=== PATIENT | female | born 1980 | race Caucasian/White ===

== ENCOUNTER 2017-02-15 18:28 | Observation (INO) ==
[2017-02-15] MEDS ORDERED: 0.9 % Sodium Chloride 1,000 ML IVC ONE ×2 (19:08→19:17)
[2017-02-15] MEDS ORDERED: *HR* HYDROmorphone (PF) 1 MG/ML SYRINGE IVP ONE (19:15)
[2017-02-15] MEDS ORDERED: Ondansetron 4 MG/2 ML VIAL IVP PRN ×3 (19:18→21:11)
[2017-02-15 19:20] LABS: Bilirubin,Urine Negative (Negative); Blood,Urine Negative (Negative); Clarity,Urine Clear (Clear); Color,Urine Yellow (Yellow); Glucose,Urine (UA) Normal (Normal); Ketones,Urine Negative (Negative); Leukocyte Esterase,Urine Negative (Negative); Nitrite,Urine Negative (Negative); PH,Urine 6.5 pH Units (5.0-8.0); Protein,Urine Negative (Neg-Trace); Specific Gravity,Urine 1.028 (1.010-1.025); Urobilinogen,Urine Normal (Normal)
[2017-02-15 19:37] LABS: Basophils % 0.3 %; Eosinophils % 0.4 %; Hematocrit 42.8 % (35.3-44.9); Hemoglobin 14.8 g/dL (11.5-15.4); Immature Granulocytes % 0.3 % (0-4); Lymphocytes % 19.1 %; Mean Corpuscular HGB Conc 34.6 g/dL (31.6-35.5); Mean Corpuscular Hemoglobin 30.8 pg (28.0-33.3); Mean Platelet Volume 8.7 fL (9.4-12.4); Monocytes # 0.6 K/mcL (0.0-1.3); Monocytes % 5.5 %; Neutrophils # 7.8 K/mcL (1.6-8.9); Nucleated Red Blood Cells 0.2 /100 WBC (0); Platelet Count 232 K/mcL (140-400); Red Blood Count 4.81 M/mcL (3.82-4.97); Red Cell Distribution Width 11.7 % (11.5-14.5); Segmented Neutrophils % 74.4 %
[2017-02-15 19:40] LABS: Prothrombin Time 11.2 Seconds (9.4-12.1)
--- NOTE | 2017-02-15 19:46 | Emergency Department Note ---
START Narrative - START START: 36-year-old female presents to emergency room with acute onset of right lower quadrant abdominal pain that started approximate in this afternoon. 7 hours later patient decided to come to the emergency room because the symptoms were progressively getting worse. Denies any fevers or chills. She has had intermittent abdominal discomfort and anorexia since he onset of the symptoms. Denies any trauma or injury. She is currently 5 months and breast- feeding. She has not demonstrated since the delivery at this time. She denies any loss and no production at this time. She has not changed any by mouth intake or food intake at this point. Vital signs on presentation are stable except for intermittent tachycardia. Patient will have fluid hydration provided here as well as pain medication and nausea medication. Clinically there is little concern for ovarian cyst or torsion along with possible tubo- ovarian abscess or ectopic secondary to the patient's lack of menstruation last 5 months and no acute changes at this time. Physical exam is unremarkable except for right lower quadrant abdominal pain. Pain is not noted over the bilateral adnexa. She has no CVA tenderness noted on exam at this time. Patient will have urinalysis CBC chemistry and then CT imaging of the abdomen with IV contrast. Definitive evaluation treatment course to be completed. See detailed documentation of physical exam, medical intervention, medical decision-making and disposition and the resident physician's note. 2100 Patient found to have acute early appendicitis based on CT imaging of the abdomen surgical admission to be completed at this time for IV antibiotics and then definitive management. Consultation placed out to Dr. waters. No other concerns or issues noted. Admission pulses to be completed at this time.
[2017-02-15 19:54] LABS: Albumin 4.5 g/dL (3.5-5.0); Albumin/Globulin Ratio 1.1 (1.1-2.2); BUN/Creatinine Ratio 13 (6-26); Bilirubin,Direct 0.2 mg/dL (0.0-0.5); Bilirubin,Indirect 0.3 mg/dL (0.0-1.2); Bilirubin,Total 0.5 mg/dL (0.2-1.2); Blood Urea Nitrogen 13 mg/dL (7-20); Carbon Dioxide 26 mEq/L (19-29); Chloride 104 mEq/L (98-109); Globulin 4.2 g/dL (2.4-3.5); Glucose 91 mg/dL (70-99); Lipase 41 Units/L (8-78); Osmolality,Calculated 294 (280-300); Potassium 3.7 mEq/L (3.5-4.5); Sodium 142 mEq/L (136-145); Total Protein 8.7 g/dL (6.0-8.3); eGFR For African Americans > 60 (> 60); eGFR For Non-African Americans > 60 (> 60)
--- NOTE | 2017-02-15 20:44 | Emergency Department Note ---
Disposition Clinical Impression: Right lower quadrant abdominal pain, Nausea Appendicitis Qualifiers: Appendicitis type: acute appendicitis Acute appendicitis type: with localized peritonitis Qualified Code(s): K35.3 - Acute appendicitis with localized peritonitis Disposition: Admitted As Inpatient Condition: Fair Time of Disposition: 21:59 Abdominal Pain HPI - General Chief Complaint: ED Abdominal Pain Stated Complaint: RLQ Pain Time Seen by Provider: 02/15/17 18:51 Source: patient Nursing Notes Reviewed: Yes Vital Signs Reviewed: Yes - History of Present Illness HPI Narrative: Patient's 36-year-old female complains of abdominal pain and right lower quadrant that started at noon today. Patient states 3 hours later the pain went from crampy abdominal pain with minimal irritation of 1/10-9/10 sharp abdominal pain worse with movement any movement. Patient states she has never had any abdominal surgeries. Patient is a breast-feeding mother gave 5 months ago. Patient denies tobacco use, illicit drug use, alcohol use. Pain Scale: 8 - Related Data Home Medications Medication Instructions Recorded Confirmed No Known Home Drugs 02/15/17 02/15/17 Allergies Allergy/AdvReac Type Severity Reaction Status Date / Time Sulfa (Sulfonamide Allergy Rash Verified 02/15/17 18:48 Antibiotics) All systems ED: reviewed and negative except as stated. Review of Systems: As Per HPI Constitutional: Denies: fever, chills ENT ED: Denies: congestion Cardiovascular: Denies: chest pain, palpitations Respiratory: Denies: cough, dyspnea Gastrointestinal: Reports: abdominal pain, nausea, diarrhea Genitourinary: Denies: urgency, dysuria, frequency, hematuria Musculoskeletal: Denies: back pain Integumentary: Denies: rash Neurological: Denies: headache Psychiatric: Denies: anxiety Endocrine: Denies: fatigue Abdominal Pain PMH - Past Medical History Medical history: Reports: no medical history Female Surgical History: Reports: orthopedic, other, Tonsillectomy Psychiatric history: Reports: no psych history - Social History Smoking status: Never smoker Alcohol use: Reports: occasionally Drug use: Reports: none Physical Exam Vital Signs Temperature 97.6 F 02/15/17 18:47 Pulse Rate 87 02/15/17 18:47 Respiratory Rate 16 02/15/17 18:47 Blood Pressure 115/80 02/15/17 18:47 O2 Sat by Pulse Oximetry 98 02/15/17 18:47 Temperature 97.6 F 02/15/17 18:47 Pulse Rate 87 02/15/17 18:47 Respiratory Rate 16 02/15/17 18:47 Blood Pressure 115/80 02/15/17 18:47 O2 Sat by Pulse Oximetry 98 02/15/17 18:47 Oxygen Delivery Oxygen Delivery Room Air 36-year-old female who is alert and oriented 3 and in acute distress secondary to abdominal discomfort. Patient looks like she is bracing herself for impact. Patient looks heavily guarded against movement. Patient is nontoxic appearing has normal vital signs and afebrile. - General Limitations: no limitations General appearance: alert, in no apparent distress - Head Head exam: atraumatic, normocephalic, normal inspection - Eye Eye exam: Present: normal appearance, PERRL, EOMI - ENT ENT exam: normal exam, normal oropharynx, mucous membranes dry - Neck Neck exam: Present: normal inspection, full ROM, trachea midline - Chest Chest inspection: Present: normal inspection, symmetric chest wall rise - Respiratory Respiratory exam: Present: normal lung sounds bilaterally - Cardiovascular Cardiovascular exam: Present: regular rate, normal rhythm, normal heart sounds - Abdominal Exam Abdominal exam: Present: soft, tenderness, guarding, diminished bowel sounds, tenderness at McBurney's Point. Absent: distention, rebound, rigidity, Kim' s sign, Rovsing's sign Abdominal tenderness: Present: RLQ, suprapubic - Extremities Exam Extremities exam: Present: normal inspection, full ROM. Absent: tenderness, pedal edema - Back Exam Back exam: Present: normal inspection, full ROM. Absent: tenderness, CVA tenderness (R), CVA tenderness (L) - Neurological Exam Neurological exam: Present: alert, oriented X3 - Psychiatric Psychiatric exam: Present: normal affect, normal mood - Skin Skin exam: Present: warm, dry, intact, normal color. Absent: diaphoresis, erythema, pallor Course Vital Signs Temperature 97.6 F 02/15/17 18:47 Pulse Rate 87 02/15/17 18:47 Respiratory Rate 16 02/15/17 18:47 Blood Pressure 115/80 02/15/17 18:47 O2 Sat by Pulse Oximetry 98 02/15/17 18:47 Temperature 98.1 F 02/15/17 21:41 Pulse Rate 73 02/15/17 21:41 Respiratory Rate 17 02/15/17 21:41 Blood Pressure 107/59 02/15/17 21:41 O2 Sat by Pulse Oximetry 100 02/15/17 21:41 Oxygen Delivery Oxygen Delivery Room Air Abdominal Pain - MDM Narrative Medical decision making narrative: Patient abdominal pain or right lower quadrant concerning for appendicitis. Patient's pain is acute onset. Patient is breast-feeding and has been anovulatory since and has not had any periods. Considered ovarian torsion but since patient may be anovulatory appendicitis seems more likely at this time. Patient's test is negative and so patient was sent for CT abdomen and pelvis which shows signs early appendicitis and possibly ileus enteritis. Patient's labs were showed no elevation of her WBC no lab abnormalities for LDH , LFTs, lipase. Patient's pain is controlled with 1 mg of Dilaudid and IV Zofran. Dr. Jerez of Gen. surgery has accepted patient to his service for overnight observation and antibiotic treatment. He states he will make all the necessary orders to the patient's care from this point forward. - Lab Data Lab results reviewed: Yes I reviewed the patient's lab results. Lab results narrative: Short CBC 02/15/17 Range/Units 19:30 WBC 10.4 (4.3-11.1) K/mcL Hgb 14.8 (11.5-15.4) g/dL Hct 42.8 (35.3-44.9) % Plt Count 232 (140-400) K/mcL Neutrophils # 7.8 (1.6-8.9) K/mcL BMP 02/15/17 Range/Units 19:30 Sodium 142 (136-145) mEq/L Potassium 3.7 (3.5-4.5) mEq/L Chloride 104 (98-109) mEq/L Carbon Dioxide 26 (19-29) mEq/L BUN 13 (7-20) mg/dL Creatinine 0.97 (0.57-1.11) mg/dL Glucose 91 (70-99) mg/dL Calcium 10.0 (8.6-10.8) mg/dL Liver Function 02/15/17 Range/Units 19:30 Total Bilirubin 0.5 (0.2-1.2) mg/dL Direct Bilirubin 0.2 (0.0-0.5) mg/dL AST 16 (5-34) Units/L ALT 19 (0-55) Units/L Alkaline Phosphatase 142 H (38-126) Units/L Albumin 4.5 (3.5-5.0) g/dL Urine 02/15/17 Range/Units 19:13 Urine Color Yellow (Yellow) Urine Clarity Clear (Clear) Urine pH 6.5 (5.0-8.0) pH Units Ur Specific [place] 1.028 H (1.010-1.025) Urine Protein Negative (Neg-Trace) mg/dL Urine Glucose (UA) Normal (Normal) mg/dL Result diagrams: 02/15/17 19:30 02/15/17 19:30 Lab Results 02/15/17 02/15/17 02/15/17 Range/Units 19:13 19:13 19:30 WBC 10.4 (4.3-11.1) K/mcL RBC 4.81 (3.82-4.97) M/mcL Hgb 14.8 (11.5-15.4) g/dL Hct 42.8 (35.3-44.9) % MCV 89.0 (83.0-100.0) fL MCH 30.8 (28.0-33.3) pg MCHC 34.6 (31.6-35.5) g/dL RDW 11.7 (11.5-14.5) % Plt Count 232 (140-400) K/mcL MPV 8.7 L (9.4-12.4) fL Immature Gran % 0.3 (0-4) % Seg Neutrophils % 74.4 % Lymphocytes % 19.1 % Monocytes % 5.5 % Eosinophils % 0.4 % Basophils % 0.3 % Neutrophils # 7.8 (1.6-8.9) K/mcL Lymphocytes # 2.0 (0.6-4.6) K/mcL Monocytes # 0.6 (0.0-1.3) K/mcL Eosinophils # 0.0 (0.0-0.6) K/mcL Basophils # 0.0 (0.0-0.2) K/mcL Nucleated RBCs/100 WBC 0.2 H (0) /100 WBC PT (9.4-12.1) Seconds INR Sodium (136-145) mEq/L Potassium (3.5-4.5) mEq/L Chloride (98-109) mEq/L Carbon Dioxide (19-29) mEq/L BUN (7-20) mg/dL Creatinine (0.57-1.11) mg/dL Est GFR ( Amer) (> 60) Est GFR (Non-Af Amer) (> 60) BUN/Creatinine Ratio (6-26) Glucose (70-99) mg/dL Calculated Osmolality (280-300) Calcium (8.6-10.8) mg/dL Total Bilirubin (0.2-1.2) mg/dL Direct Bilirubin (0.0-0.5) mg/dL Indirect Bilirubin (0.0-1.2) mg/dL AST (5-34) Units/L ALT (0-55) Units/L Alkaline Phosphatase (38-126) Units/L Serum Total Protein (6.0-8.3) g/dL Albumin (3.5-5.0) g/dL Globulin (2.4-3.5) g/dL Albumin/Globulin Ratio (1.1-2.2) Lipase (8-78) Units/L Urine Color Yellow (Yellow) Urine Clarity Clear (Clear) Urine pH 6.5 (5.0-8.0) pH Units Ur Specific [place] 1.028 H (1.010-1.025) Urine Protein Negative (Neg-Trace) mg/dL Urine Glucose (UA) Normal (Normal) mg/dL Urine Ketones Negative (Negative) mg/dL Urine Blood Negative (Negative) Urine Nitrite Negative (Negative) Urine Bilirubin Negative (Negative) Urine Urobilinogen Normal (Normal) mg/dL Ur Leukocyte Esterase Negative (Negative) Ur Culture Indicated? NO (NO) Urine Test Negative (Negative) 02/15/17 02/15/17 02/15/17 Range/Units 19:30 19:30 19:30 WBC (4.3-11.1) K/mcL RBC (3.82-4.97) M/mcL Hgb (11.5-15.4) g/dL Hct (35.3-44.9) % MCV (83.0-100.0) fL MCH (28.0-33.3) pg MCHC (31.6-35.5) g/dL RDW (11.5-14.5) % Plt Count (140-400) K/mcL MPV (9.4-12.4) fL Immature Gran % (0-4) % Seg Neutrophils % % Lymphocytes % % Monocytes % % Eosinophils % % Basophils % % Neutrophils # (1.6-8.9) K/mcL Lymphocytes # (0.6-4.6) K/mcL Monocytes # (0.0-1.3) K/mcL Eosinophils # (0.0-0.6) K/mcL Basophils # (0.0-0.2) K/mcL Nucleated RBCs/100 WBC (0) /100 WBC PT 11.2 (9.4-12.1) Seconds INR 1.0 Sodium 142 (136-145) mEq/L Potassium 3.7 (3.5-4.5) mEq/L Chloride 104 (98-109) mEq/L Carbon Dioxide 26 (19-29) mEq/L BUN 13 (7-20) mg/dL Creatinine 0.97 (0.57-1.11) mg/dL Est GFR ( Amer) > 60 (> 60) Est GFR (Non-Af Amer) > 60 (> 60) BUN/Creatinine Ratio 13 (6-26) Glucose 91 (70-99) mg/dL Calculated Osmolality 294 (280-300) Calcium 10.0 (8.6-10.8) mg/dL Total Bilirubin 0.5 (0.2-1.2) mg/dL Direct Bilirubin 0.2 (0.0-0.5) mg/dL Indirect Bilirubin 0.3 (0.0-1.2) mg/dL AST 16 (5-34) Units/L ALT 19 (0-55) Units/L Alkaline Phosphatase 142 H (38-126) Units/L Serum Total Protein 8.7 H (6.0-8.3) g/dL Albumin 4.5 (3.5-5.0) g/dL Globulin 4.2 H (2.4-3.5) g/dL Albumin/Globulin Ratio 1.1 (1.1-2.2) Lipase 41 (8-78) Units/L Urine Color (Yellow) Urine Clarity (Clear) Urine pH (5.0-8.0) pH Units Ur Specific [place] (1.010-1.025) Urine Protein (Neg-Trace) mg/dL Urine Glucose (UA) (Normal) mg/dL Urine Ketones (Negative) mg/dL Urine Blood (Negative) Urine Nitrite (Negative) Urine Bilirubin (Negative) Urine Urobilinogen (Normal) mg/dL Ur Leukocyte Esterase (Negative) Ur Culture Indicated? (NO) Urine Test (Negative) - Radiology Data Radiology results reviewed: Yes I reviewed the patient's radiology results. Abdomen/Pelvis CT 02/15/17 19:23 IMPRESSION: Increased mucosal enhancement of the appendix which shows mild distal dilation and minimal adjacent inflammatory changes. Findings could be related to early uncomplicated acute appendicitis in the correct clinical setting. There is also mild fluid distention of the small bowel loop in the anterior abdomen, possibly ileus or enteritis. D/ / Jaimee Ibarra Cha, MD / Jaimee Ibarra Cha, MD Interpreting Provider: Jaimee Ibarra Cha, MD Attestation Statement - Attestation Attestation: I, Brandon Quintana DO, examined this patient [id number] and my medical decision-making was reviewed with Dr. Wesley Avila, Resident Physician. I agree with the documented findings, disposition and treatment plan as described except to the extent set forth below. Please see my progress notes for details.
[2017-02-15] MEDS: 0.9 % Sodium Chloride 1,000 ML IVC SCH (22:22)
[2017-02-16] MEDS: Piperacillin/Tazobactam 3.375 GM/200 ML BAG IVPB SCH ×4 (00:13→19:25)
[2017-02-16] MEDS: *HR* HYDROmorphone (PF) 1 MG/ML SYRINGE IVP PRN ×4 (00:15→16:40)
[2017-02-16] MEDS: 0.9 % Sodium Chloride 1,000 ML IVC SCH ×3 (05:32→19:00)
[2017-02-16 06:42] LABS: Basophils % 0.3 %; Eosinophils % 0.5 %; Hematocrit 33.3 % (35.3-44.9); Hemoglobin 11.3 g/dL (11.5-15.4); Immature Granulocytes % 0.2 % (0-4); Lymphocytes # 2.2 K/mcL (0.6-4.6); Lymphocytes % 37.2 %; Mean Corpuscular HGB Conc 33.9 g/dL (31.6-35.5); Mean Corpuscular Hemoglobin 30.6 pg (28.0-33.3); Mean Corpuscular Volume 90.2 fL (83.0-100.0); Mean Platelet Volume 9.1 fL (9.4-12.4); Monocytes # 0.4 K/mcL (0.0-1.3); Monocytes % 6.6 %; Neutrophils # 3.3 K/mcL (1.6-8.9); Platelet Count 162 K/mcL (140-400); Red Blood Count 3.69 M/mcL (3.82-4.97); Red Cell Distribution Width 11.9 % (11.5-14.5); Segmented Neutrophils % 55.2 %
[2017-02-16 08:21] LABS: Alanine Aminotransferase 15 Units/L (0-55); Albumin 3.3 g/dL (3.5-5.0); Albumin/Globulin Ratio 1.1 (1.1-2.2); Alkaline Phosphatase 92 Units/L (38-126); Aspartate Amino Transferase 13 Units/L (5-34); BUN/Creatinine Ratio 11 (6-26); Blood Urea Nitrogen 9 mg/dL (7-20); Calcium 8.4 mg/dL (8.6-10.8); Carbon Dioxide 20 mEq/L (19-29); Chloride 109 mEq/L (98-109); Glucose 90 mg/dL (70-99); Osmolality,Calculated 286 (280-300); Sodium 139 mEq/L (136-145); Total Protein 6.3 g/dL (6.0-8.3); eGFR For African Americans > 60 (> 60); eGFR For Non-African Americans > 60 (> 60)
--- NOTE | 2017-02-16 08:32 | General Surg History&Physical ---
Date of Encounter: 02/16/17 Time of Encounter: 08:00 Assessment and Plan (1) Appendicitis Current Visit: Yes Status: Acute The assessment and plan as outlined above was discussed with the patient and/or family members who expressed understanding and agreement. All questions were answered. The patient has CAT scan evidence of dilated appendix. 2 quite blood cell count measurements are normal. Her history and physical examination are suggestive of appendicitis. I discussed the risks and benefits of both antibiotic therapy and laparoscopic appendectomy with the patient. She has chosen laparoscopic appendectomy. We will proceed later today. Qualifiers: Appendicitis type: acute appendicitis Acute appendicitis type: with localized peritonitis Qualified Code(s): K35.3 - Acute appendicitis with localized peritonitis History of Present Illness Chief complaint: Right lower quadrant abdominal pain HPI: Ms. Barnes is a 36 year old female Who is 5 months . She is currently nursing. She developed crampy suprapubic a midline abdominal pain yesterday that progressed to right lower quadrant pain. She does have anorexia. She has pain with motion. She sought evaluation in the emergency room. Her white blood cell count was normal. CAT scan findings demonstrated a dilated appendix with very little periappendiceal inflammation. There was no evidence of perforation. Since the white blood cell count was normal she was admitted to the hospital for IV hydration and repeat examination in 12 hours. Since admission to the hospital she is taking 2 doses of pain medicine. She rated her pain at 7 out of 10 this morning. She continues to have pain with motion. Physical examination demonstrated involuntary guarding right lower quadrant. I personally reviewed her CAT scan films. The appendix is in the retrocecal position and slightly dilated. There is very little periappendiceal inflammation. I discussed the findings of normal white blood cell count on 2 measurements as well as equivocal CAT scan findings with the patient. Her history and physical examination support appendicitis. She has decided to proceed with laparoscopic appendectomy. Past Med Surg Social Fam HX - Past Medical History Medical history: no medical history Psychiatric history: no psych history - Social History Smoking Status: Never smoker Smokeless Tobacco Status: No Alcohol use: occasionally Drug use: none Medications and Allergies No Known Home Drugs 02/15/17 [History] 3 Allergy/AdvReac Type Severity Reaction Status Date / Time Sulfa (Sulfonamide Allergy Rash Verified 02/15/17 18:48 Antibiotics) Review of Systems All systems PM: A 10-system review of systems was performed and is negative for pertinent findings except as documented above in the HPI. General Surgery Exam Initial Vital Signs Temp Pulse Resp BP Pulse Ox 97.6 F 87 16 115/80 98 02/15/17 18:47 02/15/17 18:47 02/15/17 18:47 02/15/17 18:47 02/15/17 18:47 - General physical appearance well developed, well nourished, no distress - Neck no masses, no bruits, trachea midline, no lymphadectomy, no venous distension - Respiratory normal expansion, normal respiratory effort, clear to percussion, clear to auscultation - Cardiovascular Cardiovascular exam: Present: RRR, no murmurs/rubs/gallops - Abdomen Abdomen general surgery: Present: bowel sounds present, guarding Abdominal Tenderness: Present: RLQ - Neurologic Present: CN 2-12 grossly intact, normal coordination, normal sensation - Psychiatric Psychiatric general surgery: Present: appropriate, oriented to person, oriented to place, oriented to time, speech is normal, memory intact Results - Labs 02/16/17 05:48 02/16/17 07:57 Abnormal lab results RBC 3.69 M/mcL (3.82-4.97) L 02/16/17 05:48 Hgb 11.3 g/dL (11.5-15.4) L D 02/16/17 05:48 Hct 33.3 % (35.3-44.9) L 02/16/17 05:48 MPV 9.1 fL (9.4-12.4) L 02/16/17 05:48 Nucleated RBCs/100 WBC 0.2 /100 WBC (0) H 02/15/17 19:30 POC Glucose 97 (58-89) H 02/16/17 05:17 Calcium 8.4 mg/dL (8.6-10.8) L D 02/16/17 07:57 Albumin 3.3 g/dL (3.5-5.0) L D 02/16/17 07:57 Ur Specific [place] 1.028 (1.010-1.025) H 02/15/17 19:13 Diabetes panel 02/16/17 Range/Units 07:57 Sodium 139 (136-145) mEq/L Potassium 4.0 (3.5-4.5) mEq/L Chloride 109 (98-109) mEq/L Carbon Dioxide 20 (19-29) mEq/L BUN 9 (7-20) mg/dL Creatinine 0.85 (0.57-1.11) mg/dL Glucose 90 (70-99) mg/dL Calcium 8.4 L D (8.6-10.8) mg/dL AST 13 (5-34) Units/L ALT 15 (0-55) Units/L Alkaline Phosphatase 92 (38-126) Units/L Albumin 3.3 L D (3.5-5.0) g/dL Calcium panel 02/16/17 Range/Units 07:57 Calcium 8.4 L D (8.6-10.8) mg/dL Albumin 3.3 L D (3.5-5.0) g/dL Pituitary panel 02/16/17 Range/Units 07:57 Sodium 139 (136-145) mEq/L Potassium 4.0 (3.5-4.5) mEq/L Chloride 109 (98-109) mEq/L Carbon Dioxide 20 (19-29) mEq/L BUN 9 (7-20) mg/dL Creatinine 0.85 (0.57-1.11) mg/dL Glucose 90 (70-99) mg/dL Calcium 8.4 L D (8.6-10.8) mg/dL Adrenal panel 02/16/17 Range/Units 07:57 Sodium 139 (136-145) mEq/L Potassium 4.0 (3.5-4.5) mEq/L Chloride 109 (98-109) mEq/L Carbon Dioxide 20 (19-29) mEq/L BUN 9 (7-20) mg/dL Creatinine 0.85 (0.57-1.11) mg/dL Glucose 90 (70-99) mg/dL Calcium 8.4 L D (8.6-10.8) mg/dL Total Bilirubin 1.0 D (0.2-1.2) mg/dL AST 13 (5-34) Units/L ALT 15 (0-55) Units/L Alkaline Phosphatase 92 (38-126) Units/L Albumin 3.3 L D (3.5-5.0) g/dL All other labs normal. - Imaging CT scan - abdomen: image reviewed (I personally reviewed the CAT scan. The appendix is dilated. There is very little periappendiceal inflammation.) - VTE Reasons for not Prescribing Prophylaxis: Treatment not Indicated - Low risk for VTE
[2017-02-16] MEDS ORDERED: *HR* Rocuronium Bromide 50 MG/5 ML VIAL ONE (09:14)
[2017-02-16] MEDS ORDERED: *HR* Succinylcholine 200 MG/10 ML VIAL IVP ONE (09:14)
[2017-02-16] MEDS ORDERED: Lidocaine -MPF 4% 5 ML AMPUL ONE (09:14)
[2017-02-16] MEDS ORDERED: Ondansetron 4 MG/2 ML VIAL ONE (09:14)
[2017-02-16] MEDS ORDERED: Dexamethasone 4 MG/ML VIAL ONE (09:14)
[2017-02-16] MEDS ORDERED: *HR* FentaNYL (PF) 100 MCG/2 ML VIAL ONE (09:15)
[2017-02-16] MEDS ORDERED: *HR* Midazolam HCl 2 MG/2 ML VIAL ONE (09:15)
[2017-02-16] MEDS ORDERED: *HR* Propofol 200 MG/20 ML VIAL IVP ONE ×2 (09:15→09:32)
--- NOTE | 2017-02-16 09:25 | Anesthesia Evaluation PreOp ---
<Frank Cummins - Last Filed: 02/16/17 09:23> Date of Encounter: 02/16/17 - Past History Planned Operation: lap appy Cardiac History: Denies any Significant Hx Pulmonary History: Denies Any Significant HX INVENTORY CONTROL ASSOCIATE History: Denies Any Significant HX Other Medical History: Denies Any Significant HX Anesthesia History: No Prior Anesthetic Complications : No (5 months post breast feeding) Alcohol Use: occasionally Drug use: none Medications and Allergies No Known Home Drugs 02/15/17 [History] 3 Allergy/AdvReac Type Severity Reaction Status Date / Time Sulfa (Sulfonamide Allergy Rash Verified 02/15/17 18:48 Antibiotics) - Meds/Allergy Pre-op Review Medications Reviewed: Yes Allergies Reviewed: Yes Beta Blockers on Current Med List: No Anesthesia Results - Labs 02/16/17 05:48 02/16/17 07:57 Anesthesia Exam Selected Entries 02/16/17 06:43 02/16/17 07:29 Temperature 98.2 F Pulse Rate 67 Respiratory Rate 15 Blood Pressure 96/61 O2 Sat by Pulse Oximetry 98 Oxygen Delivery Method Room Air Weight: 66kg NPO (# of Hours): 8 - HEENT Pupil (Motor): EOMI Mallampati: II Teeth: Normal Oral Opening: Less than or equal to 3 - INVENTORY CONTROL ASSOCIATE LOC: Oriented INVENTORY CONTROL ASSOCIATE Motor: Normal RUE, Normal LUE, Normal RLE, Normal LLE, Normal Face INVENTORY CONTROL ASSOCIATE Sensory: Normal: RUE, LUE, RLE, LLE, Face - Cardiac Rhythm: Regular Murmur: None - Pulmonary Breath Sounds: bilateral Clear Respiratory Effort: Symmetrical Anesthesia Assess/Plan ASA Score: 1 Modified Everette Scale for Level of Consciousness: Cooperative, oriented, and tranquil Anesthetic Plan: General Monitoring Plan: Standard Monitors Recovery Plan: PACU (discussed risks of GA, agrees to proceed) <Bull Lyles - Last Filed: 02/16/17 15:19> Date of Encounter: 02/16/17 Time of Encounter: 15:30 - Past History Cardiac History: Denies any Significant Hx Pulmonary History: Denies Any Significant HX INVENTORY CONTROL ASSOCIATE History: Denies Any Significant HX Other Medical History: Denies Any Significant HX Anesthesia History: No Prior Anesthetic Complications : No Alcohol Use: occasionally Drug use: none - Meds/Allergy Pre-op Review Medications Reviewed: Yes Allergies Reviewed: Yes Beta Blockers on Current Med List: No Anesthesia Results - Labs 02/16/17 05:48 02/16/17 07:57 Anesthesia Exam - HEENT Pupil (Motor): EOMI Mallampati: II Teeth: Normal Oral Opening: Less than or equal to 3 - INVENTORY CONTROL ASSOCIATE LOC: Oriented INVENTORY CONTROL ASSOCIATE Motor: Normal RUE, Normal LUE, Normal RLE, Normal LLE, Normal Face INVENTORY CONTROL ASSOCIATE Sensory: Normal: RUE, LUE, RLE, LLE, Face - Cardiac Rhythm: Regular Murmur: None JVD: No Carotid Bruit: No - Pulmonary Breath Sounds: bilateral Clear Respiratory Effort: Symmetrical Anesthesia Assess/Plan ASA Score: 1 Modified Everette Scale for Level of Consciousness: Cooperative, oriented, and tranquil Anesthetic Plan: General Monitoring Plan: Standard Monitors Recovery Plan: PACU
[2017-02-16] MEDS ORDERED: CefOXitin 1,000 MG VIAL ONE (14:57)
[2017-02-16] MEDS ORDERED: Neostigmine Methylsulfate 3 MG/3 ML SYRINGE ONE (14:58)
[2017-02-16] MEDS ORDERED: Ketorolac 30 MG/ML VIAL ONE (14:58)
[2017-02-16] MEDS ORDERED: Ringers Solution, Lactated 1,000 ML ONE (15:29)
[2017-02-16] MEDS ORDERED: Acetaminophen IV 1,000 MG/100 ML INFUS..BTL ONE (15:35)
[2017-02-16] MEDS ORDERED: Bupivacaine/EPI 1:200k 0.5%PF 10 ML VIAL ONE (16:06)
--- NOTE | 2017-02-16 16:21 | Operative Note ---
Date of procedure: 02/16/17 Pre-op diagnosis: Acute appendicitis Post-op diagnosis: same Procedure: Laparoscopic appendectomy Anesthesia: JUAN JOSE Surgeon: Henry Jerez Estimated blood loss (cc): 25 Specimen: Appendix Condition: stable Disposition: PACU Procedure in Detail: After informed consent the patient is taken to the major operative suite placed in supine position and given adequate general anesthetic. The abdomen is prepped and draped in sterile fashion utilizing ChloraPrep and standard draping techniques. Timeout was taken. The patient is identified. A vertical midline incision below the umbilicus and placed to traction stitches of 0 Vicryl. The abdomen was entered visually and I placed a Jansne trocar. The laparoscope identified an area of peritoneal inflammation on the anterior abdominal wall. An inflamed nonperforated appendix with no visible pus was seen in the right gutter in the retrocecal position. I divided the lateral peritoneal attachments to allow for complete mobilization of the appendix and its blood supply. The base of the cecum was divided with a gastrointestinal stapler load. The mesoappendix was divided with a vascular staple load. 30 seconds after the vascular staple load was placed there was still a single area of pulsatile arterial bleeding. This was controlled with 2 10 mm surgical clips. The abdomen and pelvis were irrigated with copious amounts of antibiotic containing solution. I did take a photograph of the right tube and ovary. These were completely normal. There is no further bleeding and all staple lines were intact. All trochars were removed. Fascia was closed with 0 Vicryl. Skin was closed with 2-0 and 4-0 Vicryl.
[2017-02-16] MEDS ORDERED: *HR* HYDROmorphone (PF) 1 MG/ML SYRINGE ONE (16:34)
--- NOTE | 2017-02-16 16:58 | Anesthesia Evaluation Post Op ---
Date of Encounter: 02/16/17 Time of Encounter: 17:00 - Vital Signs Vital Signs: Vital Signs/O2 Sat/Glucose, Most Current Temp Pulse Resp BP Pulse Ox 02/16/17 16:51 98.1 F 58 14 99/63 98 02/16/17 16:41 57 14 109/73 98 02/16/17 16:31 69 16 109/73 100 02/16/17 16:21 97.5 F L 81 16 112/83 100 - Lungs Lungs: Clear Ascult./Percussion - Airway Airway: Non-obstructed - Cardiovascular Regular Rate - Mental Status Mental Status: Alert & Oriented, Answers Appropriately - Pain Pain Scale: 1 - Nausea Vomiting Nausea Vomiting: Not Present - Hydration Hydration: Ice chips - Discharge PostOp Status: Transfer Patient to floor
[2017-02-16] MEDS ORDERED: *HR* HYDROmorphone (PF) 1 MG/ML SYRINGE IVP PRN (17:18)
[2017-02-16] MEDS ORDERED: Ondansetron 4 MG/2 ML VIAL IVP PRN (17:18)
[2017-02-16] MEDS: *HR* OxyCODONE/APAP 5/325 TABLET PO PRN (18:37)
[2017-02-17] MEDS: *HR* OxyCODONE/APAP 5/325 TABLET PO PRN ×2 (00:22→07:38)
[2017-02-17] MEDS: Piperacillin/Tazobactam 3.375 GM/200 ML BAG IVPB SCH (02:19)
[2017-02-17] MEDS: 0.9 % Sodium Chloride 1,000 ML IVC SCH (07:40)
[2017-02-17 08:06] VITALS: BP 100/62
--- NOTE | 2017-02-17 09:33 | Discharge Summary ---
Date of Encounter: 02/17/17 Time of Encounter: 09:05 - Discharge Diagnosis (1) Appendicitis Priority: Primary Status: Acute Comments: The patient underwent laparoscopic appendectomy for acute appendicitis. Her symptoms have resolved. Vital signs are stable. She is ready for discharge. Qualifiers: Appendicitis type: acute appendicitis Acute appendicitis type: with localized peritonitis Qualified Code(s): K35.3 - Acute appendicitis with localized peritonitis - Discharge Medications Prescriptions: OxyCODONE/APAP 5/325 [Percocet 5/325 MG] 1 each PO Q4HR PRN #24 tablet PRN Reason: Pain (1-5) Home Medications: OxyCODONE/APAP 5/325 [Percocet 5/325 MG] 1 each PO Q4HR PRN #24 tablet 02/17/17 [Rx] Allergies/Adverse Reactions: 3 Allergy/AdvReac Type Severity Reaction Status Date / Time Sulfa (Sulfonamide Allergy Rash Verified 02/15/17 18:48 Antibiotics) General Surgery Exam Initial Vital Signs Temp Pulse Resp BP Pulse Ox 97.6 F 87 16 115/80 98 02/15/17 18:47 02/15/17 18:47 02/15/17 18:47 02/15/17 18:47 02/15/17 18:47 - General physical appearance well developed, well nourished, no distress - Respiratory normal expansion, normal respiratory effort, clear to percussion, clear to auscultation - Cardiovascular Cardiovascular exam: Present: RRR, no murmurs/rubs/gallops - Abdomen Abdomen general surgery: Present: bowel sounds present, soft, non tender - Incision Incision: Present: clean and dry - Neurologic Present: CN 2-12 grossly intact, normal coordination, normal sensation - Psychiatric Psychiatric general surgery: Present: appropriate, oriented to person, oriented to place, oriented to time, speech is normal, memory intact Date of admission: 02/15/17 20:47 Primary care physician: Rober Philippe Jr, MD Discharging clinician: Henry Jerez Anticipated date of discharge: 02/17/17 - Patient Status Disposition: Home, Self-Care Condition: Fair Overall status at discharge: patient is progressing back to baseline - Discharge Instructions Follow Up With: Rober Philippe Jr, MD [Primary Care Provider] - Henry Jerez MD [Partnered Physician] - Additional Instructions: Pump and discard all taking narcotic pain medicine. Off work for 1 week. Walking is encouraged. You may shower 48 hours she may bathe at 1 week - Diet and Activity Activity: increase activity as tolerated Diet: advance to your usual diet - Hospital Course Hospital course: Ms. Barnes is a 36 year old female The patient had acute appendicitis with laparoscopic appendectomy. her symptoms have resolved and she is ready for discharge. - Time Spent with Patient Total time spent providing and/or coordinating discharge services: Specific discharge activities: None
== END 2017-02-17 11:15 | disposition home or self-care (01) ==
LOC: 3ANU 18:28 → EMEROO 18:28 → 3ANU 21:22
PROVIDERS: ADMIT Surgery; ATTEND Surgery